=== PATIENT | female | born 1985 | race Asian ===

== ENCOUNTER 2017-09-06 22:52 | Emergency (ER) | payer OTHER ==
[2017-09-07] MEDS ORDERED: NS 0.9% 1000 ML* 1,000 ML IV ONE (00:19)
[2017-09-07] MEDS ORDERED: Metoclopramide IV* 5 MG/ML 2 ML VIAL IV SLOW PU ONE (00:20)
--- NOTE | 2017-09-07 00:42 | ED ---
GI/ HPI - HPI Summary HPI Summary: 31F presents with nausea, vomiting, diarrhea today. She ate something different and her got sick too. She is concerned because she is 6 weeks . She denies any abdominal pain. She denies any vaginal bleeding. She denies any fever. She denies any chest pain, SOB, or cough. She denies any blood in her stool. She denies any mucus in her stool. She has not been able to keep anything down. - History of Current Complaint Chief Complaint: EDNauseaVomitDiarrh Time Seen by Provider: 09/07/17 00:07 Stated Complaint: VOMITING, Pain Intensity: 0 - Allergy/Home Medications Allergies/Adverse Reactions: Allergies Allergy/AdvReac Type Severity Reaction Status Date / Time No Known Allergies Allergy Verified 09/06/17 23:08 PMH/Surg Hx/FS Hx/Imm Hx Endocrine/Hematology History: Denies: Hx Diabetes Cardiovascular History: Denies: Hx Hypertension, Hx Pacemaker/ICD Respiratory History: Denies: Hx Asthma Sensory History: Denies: Hx Hearing Aid Psychiatric History: Denies: Hx Panic Disorder Infectious Disease History: No Infectious Disease History: Denies: Traveled Outside the [place] in Last 30 Days - Family History Known Family History: Negative: Diabetes - Social History Alcohol Use: None Smoking Status (MU): Never Smoked Tobacco Review of Systems Negative: Fever Negative: Chest Pain Negative: Shortness Of Breath Positive: Vomiting, Diarrhea, Nausea. Negative: Abdominal Pain All Other Systems Reviewed And Are Negative: Yes Physical Exam Triage Information Reviewed: Yes Vital Signs On Initial Exam: Initial Vitals Temp Pulse Resp BP Pulse Ox 98.0 F 59 16 119/68 100 09/06/17 23:06 09/06/17 23:06 09/06/17 23:06 09/06/17 23:06 09/06/17 23:06 Vital Signs Reviewed: Yes Appearance: Positive: Well-Appearing Skin: Positive: Warm, Dry Head/Face: Positive: Normal Head/Face Inspection Eyes: Positive: Normal, EOMI, ANA, Conjunctiva Clear ENT: Positive: Normal ENT inspection, Pharynx normal, TMs normal Respiratory/Lung Sounds: Positive: Clear to Auscultation, Breath Sounds Present Cardiovascular: Positive: Normal, RRR Abdomen Description: Positive: Nontender, Soft Bowel Sounds: Positive: Present Musculoskeletal: Positive: Normal Neurological: Positive: Normal Psychiatric: Positive: Normal Diagnostics - Vital Signs Vital Signs Temp Pulse Resp BP Pulse Ox 09/06/17 23:06 98.0 F 59 16 119/68 100 - Laboratory Result Diagrams: 09/07/17 01:10 09/07/17 01:10 Lab Statement: Any lab studies that have been ordered have been reviewed, and results considered in the medical decision making process. GIGU Course/Dx - Course Course Of Treatment: 31F presents with nausea, vomiting, diarrhea today. She ate something different and her got sick too. She is concerned because she is 6 weeks . She denies any abdominal pain. She denies any vaginal bleeding. She denies any fever. She denies any chest pain, SOB, or cough. She denies any blood in her stool. She denies any mucus in her stool. She has not been able to keep anything down. on exam nontender abdomen. labs wbc 13. electrylotes normal. gave fluids. patient did not want nausea medication but sent home with some. told to follow up with primary. patient understand and agrees with plan. - Diagnoses Differential Diagnoses - Female: Gastroenteritis (Viral), Gastroenteritis ( Bacterial), Urinary Tract Infection Provider Diagnoses: Vomiting, Discharge - Discharge Plan Condition: Good Disposition: HOME Patient Education Materials: Acute Nausea and Vomiting (ED) Referrals: Letty Soliz DO [Primary Care Provider] - Additional Instructions: Can take Reglan every 6 hours as needed for nausea, can add on Benadryl every 6 hours for nausea Drink small amounts of fluid as tolerated When able to eat follow BRAT diet: Bananas, rice, applesauce, toast Take Tylenol for pain as needed every 6 hours Follow up with primary within 5 days Return to ED if develop fever that does not respond to Tylenol, severe abdominal pain, or any new or worsening symptoms
[2017-09-07 01:52] LABS: Hematocrit 36 % (35-47); Hemoglobin 12.1 g/dl (12.0-16.0); Mean Corpuscular HGB Conc 33 g/dl (31-36); Mean Corpuscular Hemoglobin 30 pg (27-31); Mean Corpuscular Volume 91 fL (80-97); Mean Platelet Volume 8 um3 (7.4-10.4); Red Blood Count 3.98 10^6/ul (4.0-5.4); Red Cell Distribution Width 13 % (10.5-15); White Blood Count 13.5 10^3/ul (3.5-10.8)
[2017-09-07 02:02] LABS: Urine Bacteria Absent (Absent); Urine Bilirubin Negative (Negative); Urine Glucose Negative (Negative); Urine Nitrite Negative (Negative)
[2017-09-07 02:04] LABS: Albumin 4.4 g/dL (3.2-5.2); BUN/Creatinine Ratio 18.3 (8-20); Calcium 9.1 mg/dL (8.6-10.3); EGFR Non-African American 115.9 (>60); Globulin 2.7 g/dL (2-4); Magnesium 2.3 mg/dL (1.9-2.7); Potassium 3.6 mmol/L (3.5-5.0); Total Bilirubin 0.7 mg/dL (0.2-1.0); Total Protein 7.1 g/dL (6.4-8.9)
[2017-09-07] MEDS ORDERED: Metoclopramide TAB* 10 MG PO ONE (02:37)
[2017-09-07] MEDS ORDERED: diPHENhydraMINE PO* 25 MG PO ONE (03:04)
[2017-09-07 03:16] VITALS: BP 101/62
== END 2017-09-07 03:42 | disposition home or self-care (01) ==
LOC: ED 22:52
DX: O21.9 Vomiting of pregnancy, unspecified (principal); Z3A.01 Less than 8 weeks gestation of pregnancy
CPT/HCPCS: 36415; 80053; 81003; 81015; 83605; 83735; 84702; 85025; 86141; 99282; A9270-GY

== ENCOUNTER 2018-04-15 09:40 | Inpatient (IN) | payer OTHER ==
[2018-04-15] MEDS ORDERED: Penicillin G Potassium IV* 5,000,000 UNITS in NS 0.9% 100 ML* 100 ML IVPB ONE (10:29)
--- NOTE | 2018-04-15 10:39 | HP ---
General Information - General Information Maternal Age: 32 Grav: 1 Para: 0 SAB: 0 IEA: 0 Estimated Due Date: 04/21/18 Determined By: LMP Gestational Age in Weeks and Days: 39 Weeks and 1 Days Maternal Blood Type and Rh: O Positive - Results this Serology/RPR Result: Non-Reactive Rubella Result: Immune HBsAg Result: Negative HIV Result: Negative GBS Culture Result: Positive Past Medical History Delivery History: See Records Pertinent Past Medical History: Non-Contributory Pertinent Past Surgical History: None Pertinent Family History: Non-Contributory - Antepartal Records Antepartal Records: Reviewed, Uncomplicated Review of Systems Constitutional: Uncomfortable CV Complaint: No Respiratory: Shortness of Breath: No Gastrointestinal: No Nausea/Vomiting, Normal Bowel Movement Genitourinary: Bleeding, No Dysuria, No Leaking Fluid Musculoskeletal: Contractions Neurological: No Headache, No Visual Changes Movement: Normal Exam Allergies/Adverse Reactions: Allergies No Known Allergies Allergy (Verified 09/06/17 23:08) BP 124/81 T 98.2 HR 61 RR 20 O2 98 - Measurements Height: 5 ft 7.32 in Weight: 148 lb Weight in lbs: [id number] Body Mass Index (BMI): 22.9 Pre- Weight: 124 lb Weight Gained This : 16 lbs and 0 ozs - Exam Abdomen: No Upper Quadrant Pain Breast: Breast Exam Deferred CVA: No CVA Tenderness Extremities: No Edema Heart: Normal Rhythm/Heart Sounds HEENT: No Significant Findings Lungs: Clear Bilaterally Rectal: Rectal Exam Deferred Reflexes: DTR 2+, - - no clonus Thyroid: - - WNL @ entry to [facility] - Abdominal Exam Abdomen Exam: Non-Tender, Fundal Height Consistent with Dates - Ultrasound/Biophysical Profile Ultrasound Status: Not Done Targeted Exam Findings See L&D Outpatient Visit Provider Note for Findings: N/A Cervical Exam: 6cm Effacement: 90% Station: +1 Presenting Part: Vertex Membrane Status: Intact Bleeding/Discharge: Bloody Show EFM Findings - External Monitor Findings Baseline Heart Rate: 125 External Monitor Findings: Accelerations Present, No Pattern of Variable or Late Decelerations, Variability Moderate Contractions: Regular, Moderate, 45-90 Seconds Contraction Frequency: Q 2-4 Assessment/Plan - Reason for Visit Reason for Visit: IUP @ 39+1 weeks gestation. IBOW. No evidence metabolic acidemia. In active labor. - Obstetrical Risk Factors Obstetrical Risk Factors: GBS Positive - Plan Plan: Active Labor Plan Comment: Admit to L&D. Patient declines pain medication for now but may consider later. Anticipate SVB - Date/Time of Admission Date of Admission: 04/15/18 Time of Admission: 10:26
[2018-04-15 11:15] LABS: ABS Basophils 0 10^3/ul (0-0.2); ABS Eosinophils 0 10^3/ul (0-0.6); ABS Lymphocytes 0.8 10^3/ul (1.0-4.8); ABS Monocytes 0.4 10^3/ul (0-0.8); ABS Neutrophils 12.2 10^3/ul (1.5-7.7); ABS Nucleated RBC 0 10^3/ul; Eosinophil % 0.3 % (0-6); Hematocrit 38 % (35-47); Hemoglobin 13.1 g/dl (12.0-16.0); Lymphocyte % 5.9 % (25-47); Mean Corpuscular HGB Conc 34 g/dl (31-36); Mean Corpuscular Hemoglobin 31 pg (27-31); Mean Corpuscular Volume 91 fL (80-97); Mean Platelet Volume 8.9 um3 (7.4-10.4); Nucleated Red Blood Cells % 0; Platelet Count 165 10^3/ul (150-450); Red Cell Distribution Width 14 % (10.5-15); White Blood Count 13.5 10^3/ul (3.5-10.8)
[2018-04-15] MEDS ORDERED: Oxytocin in LR* 20 UNITS/1,000 ML BAG IVPB ONE (13:59)
[2018-04-15] MEDS ORDERED: Dibucaine 1% 28.35 GM TUBE PR PRN (14:27)
[2018-04-15] MEDS ORDERED: Acetaminophen TAB* 325 MG PO PRN (14:27)
[2018-04-15] MEDS ORDERED: Glycerin ADULT SUPP PR PRN (14:27)
[2018-04-15] MEDS ORDERED: Ibuprofen TAB* 600 MG PO PRN (14:27)
[2018-04-15] MEDS ORDERED: Varicella Virus Vaccine Live* 0.5 ML VIAL SUBCUT ONE (14:27)
[2018-04-15] MEDS ORDERED: Witch Hazel PAD* JAR TOPICAL PRN (14:27)
--- NOTE | 2018-04-15 14:37 | PROCNOTE ---
[facility] OB: Delivery Note - Nursery Level of Nursery: Regular/Bedside - Perineum Perineal Injury: Vaginal Laceration, 1st Degree Perineal Repair: By Delivering Practioner - 3-0 Rapide - Events Delivery Events of Note: Partial Course of Antibiotics - GBS prophylaxis PCN given approx 2 hours prior to delivery - Additional Delivery Notes Additional Delivery Notes: Approx 24 hours early labor. Admitted in active labor with steady progression to complete with urge to push. LOL 3'56 , pushed 24 minutes with SROM to clear fluid during pushing. Baby born OA-HUGO with smooth delivery of shoulders with maternal effort. To maternal abdomen with spontaneous cry. Cord doubly clamped and cut by patient once pulsations ceased. Placenta and 3VC delivered with gentle cord traction, trailing membranes teased out with clamp and appear to be complete. Left-sided 1st degree vaginal laceration repaired with 3 stiches of 3 -0 Rapide. Fundus firm to massage, no significant bleeding noted. FOB returned just after of baby. Baby at breast to initiate . Mother and baby stable and well at time of note.
[2018-04-15] MEDS ORDERED: Ammonia Inhalant* 1 EA AMP ONE (17:39)
[2018-04-15] MEDS: Penicillin G Potassium IV* 2,500,000 UNITS in NS 0.9% 100 ML* 100 ML IVPB SCH (20:06)
[2018-04-15] MEDS: Docusate CAP* 100 MG PO SCH (23:50)
[2018-04-16 06:59] LABS: ABS Basophils 0 10^3/ul (0-0.2); ABS Eosinophils 0.2 10^3/ul (0-0.6); ABS Lymphocytes 1.9 10^3/ul (1.0-4.8); ABS Monocytes 0.7 10^3/ul (0-0.8); ABS Neutrophils 12.6 10^3/ul (1.5-7.7); ABS Nucleated RBC 0 10^3/ul; Hematocrit 31 % (35-47); Hemoglobin 10.3 g/dl (12.0-16.0); Lymphocyte % 12.6 % (25-47); Mean Corpuscular HGB Conc 34 g/dl (31-36); Mean Corpuscular Hemoglobin 31 pg (27-31); Mean Corpuscular Volume 91 fL (80-97); Mean Platelet Volume 8.4 um3 (7.4-10.4); Nucleated Red Blood Cells % 0; Platelet Count 163 10^3/ul (150-450); Red Blood Count 3.35 10^6/ul (4.00-5.40); Red Cell Distribution Width 14 % (10.5-15); White Blood Count 15.4 10^3/ul (3.5-10.8)
[2018-04-16] MEDS ORDERED: Ferrous Gluconate TAB* 324 MG TAB PO SCH (09:00)
[2018-04-16] MEDS: Docusate CAP* 100 MG PO SCH (13:47)
[2018-04-16 20:08] VITALS: BP 107/69
[2018-04-17] MEDS: Docusate CAP* 100 MG PO SCH (08:46)
--- NOTE | 2018-04-17 10:32 | PTEDU ---
Patient Name: KEVIN FERNANDEZ KEVIN FERNANDEZ selected video: Never Ever Shake a Baby to view on 04/17/2018 at 10:31:08 AM from [email or web address] [id number]
--- NOTE | 2018-04-17 10:43 | PTEDU ---
Patient Name: KEVIN FERNANDEZ KEVIN FERNANDEZ selected video: BBOB: Nurturing Your Gorgeous &Growing Baby by to view on 0 04/17/2018 at 10:43:01 AM [id number]
--- NOTE | 2018-04-17 11:14 | PTEDU ---
Patient Name: KEVIN FERNANDEZ KEVIN FERNANDEZ selected video: BBOB: Bonding Through Massage to view on 04/17/2018 at 11:13:54 AM [id number]
--- NOTE | 2018-04-17 12:31 | PTEDU ---
Patient Name: KEVIN FERNANDEZ KEVIN FERNANDEZ selected video: Follow Me Mum: The [employer] to Successful to view on 04/17/2018 at 12:31:06 PM [id number]
== END 2018-04-17 14:50 | disposition home or self-care (01) | DRG 775 ==
LOC: MCHOBOUT 09:40 → MCHOB 10:26
PROVIDERS: ADMIT Midwife; ATTEND Midwife
PROC: 10E0XZZ Delivery of Products of Conception, External Approach (ICD-10-PCS; principal; 2018-04-15)
PROC: 0HQ9XZZ Repair Perineum Skin, External Approach (ICD-10-PCS; 2018-04-15)
DX: O99.824 Streptococcus B carrier state complicating childbirth (principal); O70.0 First degree perineal laceration during delivery; Z3A.39 39 weeks gestation of pregnancy; Z37.0 Single live birth
CPT/HCPCS: 36415; 85025; 86850; 86900; 86901; A9270-GY; J2540

== ENCOUNTER → 2018-07-14 13:22 | Emergency (ER) | payer OTHER ==
[2018-07-14 13:31] VITALS: BP 109/79
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
== END | disposition home or self-care (01) ==
LOC: ED 13:22
DX: S01.82XA Laceration with foreign body of other part of head, initial encounter (principal); S60.512A Abrasion of left hand, initial encounter; S60.511A Abrasion of right hand, initial encounter; V18.4XXA Pedal cycle driver injured in noncollision transport accident in traffic accident, initial encounter
CPT/HCPCS: 12011; 12041; 36415; 86703; 99282